=== PATIENT | male | born 1980 | race Caucasian/White ===

== ENCOUNTER 2022-08-25 08:00 | Emergency (ER) | payer MEDICAID ==
[~2022-08-25] VITALS: Ht 170.2 cm; Wt 95.5 kg
[2022-08-25 08:26] LABS: GLUCOSE,POINT OF CARE 316 MG/DL (70-110)
[2022-08-25] MEDS ORDERED: ACETAMINOPHEN 325 MG TABLET PO ONE (09:00)
[2022-08-25] MEDS ORDERED: LIDOCAINE 5% TRANSDERMAL PATCH TD ONE (09:30)
[2022-08-25] MEDS ORDERED: IBUPROFEN 400 MG TABLET PO ONE (09:30)
[2022-08-25] MEDS ORDERED: DIAZEPAM 5 MG TABLET PO ONE (09:30)
[2022-08-25 10:12] VITALS: BP 132/87
== END 2022-08-25 11:09 | disposition home or self-care (01) ==
LOC: EMS 08:05
DX: M54.2 Cervicalgia (principal); M79.18 Myalgia, other site; E11.65 Type 2 diabetes mellitus with hyperglycemia; F41.9 Anxiety disorder, unspecified; Z96.649 Presence of unspecified artificial hip joint
CPT/HCPCS: 82962; 99284